=== PATIENT | female | born 1945 | race Caucasian/White ===

== ENCOUNTER → 2021-10-23 09:53 | Outpatient (BNVA) | payer MEDICARE, OTHER, SELFPAY | PROVIDERS: Family Provider Family Medicine; PCP Family Medicine; Visit Provider Family Medicine | DX: Z51.81 Encounter for therapeutic drug level monitoring (principal); Z00.00 Encounter for general adult medical examination without abnormal findings; Z13.220 Encounter for screening for lipoid disorders; E55.9 Vitamin D deficiency, unspecified; R73.03 Prediabetes | CPT/HCPCS: 80053; 80061; 82306; 83036; 85025 ==

== ENCOUNTER 2022-08-21 00:09 | Emergency (ER) | payer MEDICARE, OTHER, SELFPAY ==
--- NOTE | 2022-08-21 00:10 | XRR_ITS ---
PROCEDURE INFORMATION: Exam: XR Chest Exam date and time: 08/21/2022 12:20 AM Age: 76 years old Clinical indication: Pain; Shortness of breath; Chest pressure; Patient HX: C/O chest tightness with SOB. ; Additional info: Cp TECHNIQUE: Imaging protocol: Radiologic exam of the chest. Views: 1 view. COMPARISON: No relevant prior studies available. FINDINGS: Lungs: Low lung volumes and bronchovascular crowding. Suspected mildly increased pulmonary vascularity and increased interstitial opacities. Findings may represent pulmonary edema. Atypical infection can give a similar appearance. Bibasilar opacities may represent superimposition of breast shadows, atelectasis, edema, inflammation, or infection. Pleural spaces: The costophrenic angles are mildly obscured. Can not exclude small layering pleural effusions. No large pleural effusion. No pneumothorax. Heart/Mediastinum: The cardiomediastinal silhouette is enlarged on portable view. Vasculature: The thoracic aorta is atherosclerotic and tortuous. Diaphragm: Hemidiaphragm is mildly elevated with gas in the gastric fundus. Bones/joints: There are degenerative changes of the spine and shoulder joints. XR/XR chest 1V portable [id number] IMPRESSION: 1. Low lung volumes and bronchovascular crowding. Suspected mildly increased pulmonary vascularity and interstitial opacities. Findings could represent pulmonary edema. Atypical infection can give a similar appearance. 2. Additional findings in the body of the report.
[2022-08-21 00:18] VITALS: BP 163/60; PULSE 75; RESP 18; TEMP 36.5; O2SAT 92; BMI 32.9
--- NOTE | 2022-08-21 00:20 | ECG_ITS ---
[facility] Test Date: 2022-08-21 Pat Name: Lupis Nogueira Department: Room: Gender: Female Attendant [facility]: : 1945 Requested By: Neftali Mata Order Number: [id number] Reading MD: Matias Barron M.D. Measurements Intervals [place] Rate: 76 P: 10 SD: 191 QRS: 25 QRSD: 89 T: 33 QT: 382 QTc: 430 Interpretive Statements SINUS RHYTHM WITH SINUS ARRHYTHMIA LOW QRS VOLTAGE IN PRECORDIAL LEADS [QRS DEFLECTION < 1.0 mV IN CHEST LEADS] No previous ECG available for comparison Electronically Signed On 08-21-2022 15:10:42 RECYCLE WORKER by Matias Barron M.D. [id number]
--- NOTE | 2022-08-21 00:22 | ED_ITS ---
HPI - Chest Pain General: Chief Complaint: Chest Pain Stated Complaint: chest tightness/back pain/SOB Time Seen by Provider: 08/21/22 00:11 Source: patient Mode of arrival: ambulatory Limitations: no limitations History of Present Illness: 76-year-old female states she started having some chest tightness this evening. States it is a bandlike pressure around her chest and her upper abdomen she states she has felt nauseous as well as states she had vomited a short time ago and actually feels improved states her pain is resolved since mild dyspnea denies any diaphoresis she has no medical issues is a non- smoker. She states she has been under a lot of stress lately she states a good friend of hers is on hospice and she has been setting with her. Associated symptoms: Reports nausea and vomiting; Deny dyspnea or fever(s) Review of Systems Const: Denies: fever(s), chills, body aches or change in appetite Eyes: Denies: blurry vision or eye discomfort ENMT: Denies: throat pain or dental pain Card: Reports: chest pain Resp: Denies: dyspnea GI: Reports: nausea and vomiting : Denies: dysuria Musc: Denies: neck pain or back pain Skin/Breast: Denies: rash Neuro: Denies: headache(s) Psych: Denies: depression Pj/Lymph: Denies: easy bruising All/Imm: Denies: urticaria PFSH ED PFSH: Medical History (Updated 08/21/22 @ 02:36 by Neftali Mata MD) No pertinent past medical history Social History (Updated 08/21/22 @ 00:23 by Neftali Mata MD) Substance/Drug Use: never Physical Exam Const: COMMON NORMALS: no acute distress, patient oriented x3 and healthy appearing HENMT: COMMON NORMALS: normocephalic and atraumatic HEAD & SCALP: normocephalic and atraumatic Eye: COMMON NORMALS: Equal, round and reactive pupils present and EOMs intact bilaterally PUPIL: Yes Equal, round and reactive pupils present Neck/C-Spine: COMMON NORMALS: full ROM and supple Chest: COMMONS NORMALS: normal inspection of the chest and normal palpation of entire chest wall Resp: COMMON NORMALS: normal respiratory effort, No retractions, No use of accessory muscles and clear to auscultation bilaterally AUSCULTATION: clear to auscultation bilaterally Cardio: COMMON NORMALS: regular rate, regular rhythm and No murmurs present (Cardio) RATE: regular rate RHYTHM: regular rhythm GI: COMMON NORMALS: Normal to inspection, nondistended, normoactive bowel sounds present, Soft to palpation, non-tender and no masses PALPATION: Yes Soft to palpation Extremity: COMMON NORMALS: normal to inspection and full ROM Neuro: COMMON NORMALS: patient oriented x3, moves all extremities and no focal motor deficits Psych: COMMON NORMALS: mental status grossly normal, Normal thought process present and cooperative THOUGHT PROCESS: Normal thought process present Skin: COMMON NORMALS: no rashes or lesions noted and no wounds GENERAL SKIN EXAM: no rashes or lesions noted Course Vital Signs: Vital signs: Vital Signs Temperature 97.7 F 08/21/22 00:18 Pulse Rate 65 08/21/22 01:33 Respiratory Rate 16 08/21/22 01:33 Blood Pressure 132/69 08/21/22 01:33 Pulse Oximetry 92 08/21/22 01:33 Oxygen Delivery Me thod 08/21/22 01:33 MDM - Chest Pain Medical Decision Making Patient presents here with chest pain is atypical in nature her troponins EKG here normal she feels much improved she is stable for discharge she is to follow-up with her PCP in 2 to 4 days return if worsening she understands agrees to plan. She has no signs of aortic dissection or pulmonary embolism. Lab Data 08/21/22 00:33 08/21/22 01:57 Radiology Impressions Chest X-Ray 08/21/22 00:10 IMPRESSION: 1. Low lung volumes and bronchovascular crowding. Suspected mildly increased pulmonary vascularity and interstitial opacities. Findings could represent pulmonary edema. Atypical infection can give a similar appearance. 2. Additional findings in the body of the report. Laboratory Results WBC 9.2 10^3/uL (4.0-10.0) 08/21/22 00:33 RBC 5.12 10^6/uL (4.1-5.3) 08/21/22 00:33 Hgb 14.7 g/dL (11.5-15.3) 08/21/22 00:33 Hct 45.5 % (37.0-47.0) 08/21/22 00:33 MCV 88.9 fl (81-99) 08/21/22 00:33 MCH 28.7 pg (28.0-34.0) 08/21/22 00:33 MCHC 32.3 g/dL (30.0-36.0) 08/21/22 00:33 RDW 13.1 % (12.1-15.1) 08/21/22 00:33 Plt Count 219 10^3/cmm (130-400) 08/21/22 00:33 MPV 10.9 fL (7.4-10.4) H 08/21/22 00:33 Neut % (Auto) 40.6 % 08/21/22 00:33 Lymph % (Auto) 48.0 % 08/21/22 00:33 [place] % (Auto) 8.3 % 08/21/22 00:33 Eos % (Auto) 2.1 % 08/21/22 00:33 Baso % (Auto) 0.5 % 08/21/22 00:33 Neut # (Auto) 3.71 10^3/uL (1.8-7.7) 08/21/22 00:33 Lymph # (Auto) 4.4 10^3/uL (0.8-4.8) 08/21/22 00:33 [place] # (Auto) 0.8 10^3/uL (0.2-0.9) 08/21/22 00:33 Eos # (Auto) 0.2 10^3/uL (0.0-0.8) 08/21/22 00:33 Baso # (Auto) 0.1 10^3/uL (0.0-0.1) 08/21/22 00:33 Nucleated RBC % (auto) 0 % 08/21/22 00: Nucleated RBCs # 0.0 /100WBC 08/21/22 00:33 PT 12.10 SECONDS (12.1-14.9) 08/21/22 00:33 INR 0.87 (0.8-1.2) 08/21/22 00:33 Sodium 139 mmol/L (136-145) 08/21/22 01:57 Potassium 4.2 mmol/L (3.5-5.1) 08/21/22 01:57 Chloride 102 mmol/L (98-107) 08/21/22 01:57 Carbon Dioxide 25 mmol/L (22-29) 08/21/22 01:57 Anion Gap 16.2 (5-19) 08/21/22 01:57 BUN 19 mg/dL (8-23) 08/21/22 01:57 Creatinine 0.8 mg/dL (0.5-0.9) 08/21/22 01:57 GFR Calculation Not Reportable 08/21/22 01:57 Glucose 211 mg/dL (65-115) H 08/21/22 01:57 Calculated Osmolality 297 mOsm/kg (285-295) H 08/21/22 01:57 Calcium 9.3 mg/dL (8.5-10.5) 08/21/22 01:57 Total Bilirubin 0.2 mg/dL (0.15-1.2) 08/21/22 01:57 AST 17 U/L (0-32) 08/21/22 01:57 ALT 18 U/L (0-33) 08/21/22 01:57 Alkaline Phosphatase 91 U/L (35-105) 08/21/22 01:57 Troponin T Baseline 6 ng/L (0-10) 08/21/22 00:33 Troponin T 120 Minute 6.00 ng/L (0-10) 08/21/22 01:57 NT-Pro-B Natriuret Pep 36 pg/mL (0-450) 08/21/22 00:33 Total Protein 6.4 g/dL (6.6-8.7) L 08/21/22 01:57 Albumin 3.8 g/dL (3.5-5.2) 08/21/22 01:57 Globulin 2.6 g/dL (1.3-4.6) 08/21/22 01:57 Lipase 35 U/L (13-60) 08/21/22 00:33 EKG Data EKG 1: I personally reviewed and interpreted this EKG as follows: EKG interpretation date: 08/21/22 EKG interpretation time: 00:20 Interpretation: nsr hr [address] or t wave abnormalities qrs 89 qtc 412 Discharge Plan Discharge Patient Disposition: Home Clinical Impression: Chest pain Prescriptions: New ondansetron 4 mg tablet,disintegrating 4 mg PO Q6H PRN (Reason: nausea and vomiting) Qty: 14 0RF Discharge Orders: Discharge ED (Routine); Ordered 08/21/22 Ordered By: Neftali Mata Referrals: Colt Yanes MD [Primary Care Provider] - 1-3 days Discharge Diet: Advance as tolerated Discharge Activity: Resume usual activity Patient Instructions: Chest Pain (ED) Coding Level of Care Code ED Human Resources Leader for Rufino Patel
[2022-08-21 00:43] LABS: Basophils # 0.1 10^3/uL (0.0-0.1); Basophils % 0.5 %; Eosinophils # 0.2 10^3/uL (0.0-0.8); Eosinophils % 2.1 %; Hematocrit 45.5 % (37.0-47.0); Hemoglobin 14.7 g/dL (11.5-15.3); Lymphocytes # 4.4 10^3/uL (0.8-4.8); Mean Corpuscular HGB Conc 32.3 g/dL (30.0-36.0); Mean Corpuscular Hemoglobin 28.7 pg (28.0-34.0); Mean Corpuscular Volume 88.9 fl (81-99); Mean Platelet Volume 10.9 fL (7.4-10.4); Monocytes # 0.8 10^3/uL (0.2-0.9); Monocytes % 8.3 %; Neutrophils # 3.71 10^3/uL (1.8-7.7); Neutrophils % 40.6 %; Nucleated Red Blood Cells % 0 %; Platelet Count 219 10^3/cmm (130-400); Red Blood Count 5.12 10^6/uL (4.1-5.3); Red Cell Distribution Width 13.1 % (12.1-15.1); White Blood Count 9.2 10^3/uL (4.0-10.0)
[2022-08-21] MEDS: aspirin 81 mg Chew Tablet 324 MG PO (00:46)
[2022-08-21] MEDS: ondansetron 2 mg/ML SDV 2 mL 4 MG IVP (00:46)
[2022-08-21 00:52] VITALS: BP 137/58; PULSE 67; RESP 14; O2SAT 97
[2022-08-21 00:54] LABS: INR 0.87 (0.8-1.2)
[2022-08-21 01:01] LABS: Troponin(5th) Baseline 6 ng/L (0-10)
[2022-08-21 01:10] LABS: Lipase 35 U/L (13-60); NT Pro B Type Natriuretic Pept 36 pg/mL (0-450)
--- NOTE | 2022-08-21 01:12 | PC.NURSE ---
Pt sitting up in bed. [place] provided.
[2022-08-21 01:33] VITALS: BP 132/69; PULSE 65; RESP 16; O2SAT 92
--- NOTE | 2022-08-21 02:10 | ECG_ITS ---
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 Measurements Intervals [place] Rate: 69 P: -54 SD: 169 QRS: 12 QRSD: 82 T: 40 QT: 390 QTc: 418 Interpretive Statements SINUS RHYTHM LOW QRS VOLTAGE IN PRECORDIAL LEADS [QRS DEFLECTION < 1.0 mV IN CHEST LEADS] POSSIBLE RIGHT VENTRICULAR CONDUCTION DELAY [RSR (QR) IN V1/V2] POSSIBLE ANTERIOR MYOCARDIAL INFARCTION , PROBABLY OLD [30 ms Q WAVE IN V3/V4, OR R < 0.2 mV IN V4] Compared to ECG 08/21/2022 00:20:37 Myocardial infarct finding now present Sinus arrhythmia no longer present Electronically Signed On 08-21-2022 15:17:59 DRAFTER AUTOMOTIVE DESIGN LAYOUT by Matias Barron M.D. [id number]
[2022-08-21 02:26] LABS: Alanine Aminotransferase 18 U/L (0-33); Albumin Level 3.8 g/dL (3.5-5.2); Alkaline Phosphatase 91 U/L (35-105); Anion Gap 16.2 (5-19); Aspartate Amino Transferase 17 U/L (0-32); Blood Urea Nitrogen 19 mg/dL (8-23); Calcium 9.3 mg/dL (8.5-10.5); Carbon Dioxide 25 mmol/L (22-29); Chloride 102 mmol/L (98-107); Globulin 2.6 g/dL (1.3-4.6); Glucose 211 mg/dL (65-115); Osmolality Calculated 297 mOsm/kg (285-295); Potassium 4.2 mmol/L (3.5-5.1); Sodium 139 mmol/L (136-145); Total Bilirubin 0.2 mg/dL (0.15-1.2); Total Protein 6.4 g/dL (6.6-8.7)
[2022-08-21 02:51] VITALS: BP 130/73; PULSE 86; RESP 16; O2SAT 95
[2022-08-21 03:32] LABS: Troponin 5 2HR Delta 0 ABS# (0-10)
== END 2022-08-21 02:53 | disposition home or self-care (01) ==
PROVIDERS: Emergency Provider Emergency Medicine; PCP Family Medicine
DX: R07.89 Other chest pain (principal); R11.2 Nausea with vomiting, unspecified
CPT/HCPCS: 71045; 80053; 83690; 83880; 84484; 85025; 85610; 93005; 96374; 99285; J2405

== ENCOUNTER 2023-06-21 10:04 | Emergency (ER) | payer MEDICARE, OTHER, SELFPAY ==
[2023-06-21 10:10] VITALS: BP 181/101; PULSE 74; RESP 12; TEMP 36.4; O2SAT 97; BMI 32.9
[2023-06-21 10:55] LABS: Basophils # 0.1 10^3/uL (0.0-0.1); Basophils % 0.6 %; Eosinophils # 0.1 10^3/uL (0.0-0.8); Eosinophils % 0.9 %; Hematocrit 50.6 % (36-47); Lymphocytes # 2.9 10^3/uL (0.8-4.8); Lymphocytes % 36.8 %; Mean Corpuscular HGB Conc 32.6 g/dL (30-55); Mean Corpuscular Hemoglobin 29.9 pg (27-33); Mean Corpuscular Volume 91.8 fl (85-98); Mean Platelet Volume 11.3 fL (7.4-10.4); Monocytes # 0.6 10^3/uL (0.2-0.9); Neutrophils # 4.24 10^3/uL (1.8-7.7); Neutrophils % 53.3 %; Nucleated Red Blood Cells % 0 %; Platelet Count 184 10^3/cmm (157-399); Red Blood Count 5.51 10^6/uL (3.85-5.65); Red Cell Distribution Width 13.4 % (12.1-15.1); White Blood Count 7.96 10^3/uL (3.29-11.43)
[2023-06-21 11:11] LABS: Alanine Aminotransferase 18 U/L (0-33); Albumin Level 4.1 g/dL (3.5-5.2); Alkaline Phosphatase 98 U/L (35-105); Blood Urea Nitrogen 14 mg/dL (8-23); Calcium 9.8 mg/dL (8.5-10.5); Carbon Dioxide 22 mmol/L (22-29); Chloride 105 mmol/L (98-107); Globulin 3.1 g/dL (1.3-4.6); Glucose 111 mg/dL (65-115); Lipase 22 U/L (13-60); Osmolality Calculated 289 mOsm/kg (285-295); Sodium 139 mmol/L (136-145); Total Bilirubin 0.4 mg/dL (0.15-1.2); Total Protein 7.2 g/dL (6.6-8.7)
[2023-06-21 11:16] LABS: Anion Gap 16.3 (5-19); Aspartate Amino Transferase 20 U/L (0-32); Potassium 4.3 mmol/L (3.5-5.1)
--- NOTE | 2023-06-21 11:46 | ED_ITS ---
HPI - Abdominal Pain 2 General: Chief Complaint: Abdominal Pain Stated Complaint: left side abd pain Time Seen by Provider: 06/21/23 10:24 Source: patient Mode of arrival: ambulatory Limitations: no limitations History of Present Illness: Patient is a nice 77-year-old female presents to ED today along with her friend for evaluation of left-sided chest/abdominal pain. She states she began noticing sharp pains approximately 3 days ago. No known injury or trauma. She states she is not having any other symptoms. She states she is eating and drinking well without any stomach issues . She states she is urinating normally and having normal bowel movements. She denies any pain up into her chest or shortness of breath. Patient has no systemic symptoms such as fevers, chills, body aches. She has not been sick recently with any URI-like symptoms. Patient tells me she recently has noticed several spider bites to the area. MD elicited complaint: abdominal pain Onset (ago): day(s) Pain Consistency: constant Location: Other (L trunk) Severity: moderate Quality: sharp and burning Migration to: no migration Exacerbating factors: nothing Relieving factors: nothing Associated Symptoms: Reports other (rash/ spider bites ); Denies chills, diarrhea, dysuria, fever(s), nausea, syncope and vomiting Related Data: Patient : No Review of Systems 2 Const: Denies: fever(s), chills, body aches, fatigue or malaise Card: Denies: chest pain, palpitations, irregular heart rhythm, edema, swelling of feet/ankles, lightheadedness, syncope, pre-syncope or dyspnea on exertion Resp: Denies: dyspnea, productive cough, wheezing, hemoptysis or chest congestion GI: Reports: other (rash/ spider bites ); Denies: abdominal pain, nausea, vomiting or diarrhea : Denies: flank pain, difficulty voiding, dysuria, urinary frequency, urinary urgency or urinary hesitancy Musc: Denies: neck pain, back pain, extremity pain or joint pain Skin/Breast: Reports: rash Neuro: Denies: headache(s), numbness in extremities, weakness in extremities, sensory changes or dizziness PFSH ED 2 PFSH: Medical History Prediabetes Surgical History No pertinent past surgical history Social History Smoking and tobacco/nicotine status: never used tobacco/nicotine Alcohol intake: never Substance/Drug Use: never Marital status: / Physical Exam 2 Const: COMMON NORMALS: no acute distress, average body habitus, patient oriented x3, no limitations, healthy appearing, alert and well nourished G ENERAL APPEARANCE: cooperative ORIENTATION/CONSCIOUSNESS: Yes awake, Yes oriented to person, Yes oriented to place and Yes oriented to time Eye: COMMON NORMALS: no scleral icterus Neck/C-Spine: COMMON NORMALS: full ROM, no lymphadenopathy and no meningeal signs Chest: COMMONS NORMALS: normal inspection of the chest and normal palpation of entire chest wall Resp: COMMON NORMALS: normal respiratory effort and clear to auscultation bilaterally AUSCULTATION: clear to auscultation bilaterally Cardio: COMMON NORMALS: regular rate and regular rhythm RATE: regular rate RHYTHM: regular rhythm GI: COMMON NORMALS: Soft to palpation, non-tender, No hepatosplenomegaly present and no masses INSPECTION: Yes other (rash/shingles) AUSCULTATION: Yes normoactive bowel sounds PALPATION: Yes Soft to palpation and Yes No hepatosplenomegaly present GI image (female): 1. patient has clusters of erythematous lesions to L abdomen not crossing midline-she has a few continuing into the back-again not crossing midline : COMMON NORMALS: Yes no CVA tenderness BLADDER/KIDNEY EXAM: Yes no CVA tenderness Back/Pelvis: COMMON NORMALS: no CVA tenderness, thoracic and lumbar spine normal to inspection and no thoracic nor lumbar tenderness Extremity: COMMON NORMALS: normal to inspection GENERAL: Yes normal exam except as noted Neuro: COMMON NORMALS: patient oriented x3, moves all extremities, no focal motor deficits and no sensory deficits noted SENSORIUM/ORIENTATION: Yes alert, Yes oriented to person, Yes oriented to place and Yes oriented to time MENINGEAL SIGNS: Yes no meningeal signs Skin: RASHES: rashes noted Course 2 Vital Signs: Vital signs: Vital Signs Temperature 97.6 F 06/21/23 10:10 Pulse Rate 74 06/21/23 10:10 Respiratory Rate 12 06/21/23 10:10 Blood Pressure 181/101 06/21/23 10:10 Pulse Oximetry 97 06/21/23 10:10 Oxygen Delivery Me thod Room Air 06/21/23 10:10 MDM - Abdominal Pain Medical Decision Making Patient's symptoms/history and physical exam findings are consistent with classic shingles. She will be placed on antivirals, steroids, given pain medication. Recommend follow-up with her primary care provider later this week if symptoms do not seem to be improving. Return to ED precautions given. Blood work that was initially ordered in triage is unremarkable. Medical Records I reviewed the patient's medical records. Lab Data I reviewed the patient's lab results. 06/21/23 10:47 06/21/23 10:47 Labs/Radiology: Laboratory Results WBC 7.96 10^3/uL (3.29-11.43) 06/21/23 10:47 RBC 5.51 10^6/uL (3.85-5.65) 06/21/23 10:47 Hgb 16.50 g/dL (11.27-16.99) 06/21/23 10:47 Hct 50.6 % (36-47) H 06/21/23 10:47 MCV 91.8 fl (85-98) 06/21/23 10:47 MCH 29.9 pg (27-33) 06/21/23 10:47 MCHC 32.6 g/dL (30-55) 06/21/23 10:47 RDW 13.4 % (12.1-15.1) 06/21/23 10:47 Plt Count 184 10^3/cmm (157-399) 06/21/23 10:47 MPV 11.3 fL (7.4-10.4) H 06/21/23 10:47 Neut % (Auto) 53.3 % 06/21/23 10:47 Lymph % (Auto) 36.8 % 06/21/23 10:47 [place] % (Auto) 8.0 % 06/21/23 10:47 Eos % (Auto) 0.9 % 06/21/23 10:47 Baso % (Auto) 0.6 % 06/21/23 10:47 Neut # (Auto) 4.24 10^3/uL (1.8-7.7) 06/21/23 10:47 Lymph # (Auto) 2.9 10^3/uL (0.8-4.8) 06/21/23 10:47 [place] # (Auto) 0.6 10^3/uL (0.2-0.9) 06/21/23 10:47 Eos # (Auto) 0.1 10^3/uL (0.0-0.8) 06/21/23 10:47 Baso # (Auto) 0.1 10^3/uL (0.0-0.1) 06/21/23 10:47 Nucleated RBC % (auto) 0 % 06/21/23 10:47 Nucleated RBCs # 0.0 /100WBC 06/21/23 10:47 Sodium 139 mmol/L (136-145) 06/21/23 10:47 Potassium 4.3 mmol/L (3.5-5.1) 06/21/23 10:47 Chloride 105 mmol/L (98-107) 06/21/23 10:47 Carbon Dioxide 22 mmol/L (22-29) 06/21/23 10:47 Anion Gap 16.3 (5-19) 06/21/23 10:47 BUN 14 mg/dL (8-23) 06/21/23 10:47 Creatinine 0.7 mg/dL (0.5-0.9) 06/21/23 10:47 GFR Calculation Not Reportable 06/21/23 10:47 Glucose 111 mg/dL (65-115) 06/21/23 10:47 Calculated Osmolality 289 mOsm/kg (285-295) 06/21/23 10:47 Calcium 9.8 mg/dL (8.5-10.5) 06/21/23 10:47 Total Bilirubin 0.4 mg/dL (0.15-1.2) 06/21/23 10:47 AST 20 U/L (0-32) 06/21/23 10:47 ALT 18 U/L (0-33) 06/21/23 10:47 Alkaline Phosphatase 98 U/L (35-105) 06/21/23 10:47 Total Protein 7.2 g/dL (6.6-8.7) 06/21/23 10:47 Albumin 4.1 g/dL (3.5-5.2) 06/21/23 10:47 Globulin 3.1 g/dL (1.3-4.6) 06/21/23 10:47 Lipase 22 U/L (13-60) 06/21/23 10:47 No radiology studies performed this visit Discharge Plan Discharge Patient Disposition: Home Clinical Impression: Shingles rash Qualifiers: Herpes zoster complications: without complications Qualified Code(s): B02.9 - Zoster without complications Condition: Stable Prescriptions: New Valtrex 1 gram tablet 1,000 mg PO TID 7 Days Qty: 21 0RF prednisone 10 mg tablet 10 mg PO DAILY 10 Days Qty: 20 0RF Rx Instructions: Take 5 tabs on day 1-2, 4 tabs on day 3, 3 tabs on day 4, 2 tabs on day 5, and 1 tab on day 6 hydrocodone-acetaminophen 5-325 mg tablet 1 tab PO Q6H PRN (Reason: pain) Qty: 14 0RF No Action CoQ-10 100 mg Capsule 100 mg PO BID Vitamin D3 10 mcg (400 unit) Tablet,Chewable 10 mcg PO BID Vitamin C 125 mg Tablet,Chewable 125 mg PO BID Discharge Orders: Discharge ED (Routine); Ordered 06/21/23 Ordered By: Radha Winslow Referrals: Colt Yanes MD [Primary Care Provider] - Patient Instructions: Shingles (ED) Coding Level of Care Code ED Brush Machine Setter for Rufino Patel
[2023-06-21 12:59] LABS: Add Urine Microscopic? YES; Bilirubin Urine Neg (Negative); Blood Urine Neg (Negative); Glucose Urine UA Norm (Normal); Ketones Urine Negative (Negative); Leukocyte Esterase Urine 2+ (Negative); Nitrate Urine Negative (Negative); Protein Urine Neg (Negative); Urine Appearance SL Hazy (CLEAR); Urine Color Yellow (Yellow); Urobilinogen Urine Norm (Negative); pH Urine 5 (5-7)
[2023-06-21 13:00] LABS: Add Urine Culture? No; Bacteria Urine TRACE /hpf; Mucus Urine 2+ /hpf; RBC Urine 0-4 /hpf (0-2); Squamous Epithelial Cell Urine 0-4 /hpf (0-5)
== END 2023-06-21 12:27 | disposition home or self-care (01) ==
PROVIDERS: Emergency Provider Physician Assistant; PCP Family Medicine
DX: B02.9 Zoster without complications (principal)
CPT/HCPCS: 36415; 80053; 81001; 83690; 85025; 99283

== ENCOUNTER → 2024-02-25 11:34 | Outpatient (BNVA) | payer MEDICARE, OTHER, SELFPAY | PROVIDERS: PCP Family Medicine; Visit Provider Family Medicine | DX: Z13.220 Encounter for screening for lipoid disorders (principal); Z51.81 Encounter for therapeutic drug level monitoring; E78.5 Hyperlipidemia, unspecified; R73.03 Prediabetes; E55.9 Vitamin D deficiency, unspecified | CPT/HCPCS: 80053; 80061; 82306; 83036; 85025 ==

== ENCOUNTER → 2024-08-09 07:23 | Outpatient (BNVA) | payer MEDICARE, OTHER, SELFPAY | PROVIDERS: PCP Family Medicine; Visit Provider Podiatrist Foot & Ankle Surgery | DX: Q66.72 Congenital pes cavus, left foot (principal) | CPT/HCPCS: 73630; 99203 ==

== ENCOUNTER 2024-08-17 14:00 | Outpatient (CLI) | payer MEDICARE, OTHER, SELFPAY ==
--- NOTE | 2024-08-17 14:30 | MRR_ITS ---
PROCEDURE INFORMATION: Exam: MR Right Upper Extremity Other Than Joint Without Contrast, Humerus. Exam date and time: 08/17/2024 2:22 PM Age: 78 years old Clinical indication: Pain and injury or trauma; Other: Moving case of water; Injury details: Injured arm moving 24 pack of water bottles. Pain radiates down arm. History--arm pain limited rom PT exam limited my motion, brachialis muscle; Additional info: Right arm pain - possibly tear of the brachialis muscle TECHNIQUE: Imaging protocol: Magnetic resonance imaging of the right upper extremity other than joint without contrast. Exam focused on the humerus. COMPARISON: CR (CHEST, ) 08/21/2022 12:20 AM FINDINGS: Bones/joints: Imaging of the upper arm from the humeral head to the distal humerus was performed. The brachialis and biceps tendon insertions are not visualized on the axial images. No gross abnormalities of the insertions are seen on sagittal images however evaluation is limited owing to the large [id number]. The marrow signal is within normal limits. No suspicious marrow lesions Soft tissues: No discrete fluid collections or masses are noted within the soft tissues. The visualized portions of the biceps, brachialis and triceps muscles are within normal limits. MR/MR humerus RT wo con* [id number] IMPRESSION: No acute abnormality.
== END 2024-08-17 14:01 | disposition home or self-care (01) ==
LOC: RAD 14:03
PROVIDERS: PCP Family Medicine; Visit Provider Family Medicine
DX: M79.601 Pain in right arm (principal); X50.0XXA Overexertion from strenuous movement or load, initial encounter
CPT/HCPCS: 73218

== ENCOUNTER 2024-10-04 12:58 | Outpatient (RCR) | payer MEDICARE, OTHER, SELFPAY | END 2024-10-11 23:59 | disposition home or self-care (01) | LOC: SPT 12:58 | PROVIDERS: PCP Family Medicine; Visit Provider Family Medicine | DX: M79.621 Pain in right upper arm (principal) | CPT/HCPCS: 97110; 97161 ==

== ENCOUNTER 2024-10-12 05:00 | Outpatient (RCR) | payer MEDICARE, OTHER, SELFPAY | END 2024-11-09 15:38 | disposition home or self-care (01) | LOC: SPT 05:00 | PROVIDERS: PCP Family Medicine; Visit Provider Family Medicine | DX: M79.621 Pain in right upper arm (principal) | CPT/HCPCS: 97110 ==

== ENCOUNTER → 2025-03-29 08:48 | Outpatient (BNVA) | payer OTHER, SELFPAY | PROVIDERS: PCP Family Medicine; Visit Provider Dermatology | DX: L57.0 Actinic keratosis (principal); L71.8 Other rosacea; L23.9 Allergic contact dermatitis, unspecified cause; L91.8 Other hypertrophic disorders of the skin; R20.8 Other disturbances of skin sensation; H53.451 Other localized visual field defect, right eye | CPT/HCPCS: 11200; 99204 ==

== ENCOUNTER 2025-03-30 13:13 | Outpatient (CLI) | payer OTHER, SELFPAY ==
--- NOTE | 2025-03-30 13:21 | XR_ITS ---
WS: [id number] DEXA (DUAL ENERGY X-RAY ABSORPTIOMETRY) Bone mineral density was performed using a [employer] machine. HISTORY: SCREENING COMPARISON: None available. Lumbar spine BMD (L1-L4): 1.023 g/cm2 T score: -1.3 Z score: 0.0 Total hip BMD: Left: 0.907 g/cm2. T score: -0.8 Z score: 0.8 Right: 0.903 g/cm2. T score: -0.8 Z score: 0.8 10 year probability of a major osteoporotic fracture is 14.6%. XR/XR DEXA axial skeleton* [id number] IMPRESSION: OSTEOPENIA based upon the WHO classification for females.
== END 2025-03-30 13:14 | disposition home or self-care (01) ==
LOC: RAD 13:15
PROVIDERS: PCP Family Medicine; Visit Provider Family Medicine Geriatric Medicine
DX: Z13.820 Encounter for screening for osteoporosis (principal); Z78.0 Asymptomatic menopausal state; M85.88 Other specified disorders of bone density and structure, other site
CPT/HCPCS: 77080

== ENCOUNTER → 2025-04-27 09:09 | Outpatient (BNVA) | payer OTHER, SELFPAY | PROVIDERS: PCP Family Medicine; Visit Provider Dermatology | DX: L71.8 Other rosacea (principal); L23.9 Allergic contact dermatitis, unspecified cause; L82.1 Other seborrheic keratosis | CPT/HCPCS: 99213 ==